=== PATIENT | female | born 1965 | race Caucasian/White ===

== ENCOUNTER 2022-07-01 06:28 | Observation (INO) ==
--- NOTE | 2022-06-28 09:40 | Anesthesiology Consultation ---
Date of Service June 28, 2022 Assessment & Plan (1) Encounter for pre-operative examination: - COVID screening: Per assessment on 06/24: No known COVID-19 positive contacts or current COVID-19 related symptoms. Travel screen negative. Patient vaccinated. At surgeon discretion if preop Covid testing being done. - S/P Colonoscopy (06/21/22): MAC at [facility]. No issues noted per post-op anesthesia progress note. Chart Review Chart Review: Acceptable Risk for Surgery and Patient NOT seen in Pre Admission Testing History Surgery Operation Date: 07/01/22 09:00 Proposed Procedures p Bilateral Total Mastectomy, Left Axillary [place] Lymph Node Biopsy - Aleks Hernandez, Height/Weight Height: 5 ft 5 in Weight: 86.183 kg Allergies Allergy/AdvReac Type Severity Reaction Status Date / Time cat dander Allergy Intermediate EYES SWELL Verified 06/24/22 11:13 AND ASTHMA LIKE SX'S lidocaine Allergy Mild Blister Verified 06/24/22 11:13 Medications Home Medications Medication Instructions Recorded Confirmed Last Taken No Known Home Medications 06/24/22 06/24/22 Unknown Past Medical History Medical History 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 History of COVID-19 Dx 08/2020, no current issues Rosacea Scoliosis "Mild" Past Family History Family History Grandfather (Maternal) Prostate cancer Father Cancer Pancreatic Mother Depression Parkinson disease Brother Cancer Son Depression suicide Other No family history of adverse response to anesthesia Denies family history of Ovarian cancer Myocardial infarction Breast cancer Colorectal cancer Past Surgical History Surgical History History of tooth extraction Hx of colonoscopy S/P breast biopsy left S/P section x2 1985,1986 Social History Smoking Status: Never smoker Do You Dip or Chew Tobacco: No Hx Alcohol Use: Yes Alcohol type: beer and wine alcohol intake frequency: holidays/special occasions only Hx Substance Use: No substance use type: does not use Testing Laboratory Results 06/25/22 WBC 4.31 H/H 12.8/38.5 PLATELETS 303 SODIUM 139 POTASSIUM 4.5 CHLORIDE 104 CO2 28 BUN 14 CREATININE 0.78 GLUCOSE 94 Electrocardiogram Date: 06/24/22 NSR at 75bpm. iRBBB.
[~2022-07-01 06:28] MED LIST: LACTATED RINGER'S 1,000 ML IV SCH; LR 15ML/HR IV SCH; ceFAZolin 2000MG 2,000 MG/15 ML SYR IV SCH
[2022-07-01] MEDS ORDERED: ACETAMINOPHEN 1000 MG/100 ML IV IV ONE (06:46)
[2022-07-01] MEDS ORDERED: MIDAZOLAM HCL 1 MG/ML 2ML VIAL ONE (06:47)
[2022-07-01] MEDS ORDERED: DEXAMETHASONE SOD INJ 4 MG/ML VIAL ONE (06:47)
[2022-07-01] MEDS ORDERED: ONDANSETRON INJ 2 MG/ML 2 ML VIAL ONE ×2 (06:47→12:09)
[2022-07-01] MEDS ORDERED: PROPOFOL IV EMULSION 10 MG/ML 20 ML VIAL IV ONE ×2 (06:47→08:47)
[2022-07-01] MEDS ORDERED: fentaNYL citrate 100 MCG/2 ML VIAL ONE ×3 (06:48→10:47)
[2022-07-01] MEDS ORDERED: PROMETHAZINE HCL 12.5 MG in SODIUM CHLORIDE 0.9% 50 ML IV PRN (07:37)
[2022-07-01] MEDS ORDERED: ONDANSETRON INJ 2 MG/ML 2 ML VIAL IV PRN ×2 (07:37→16:09)
[2022-07-01] MEDS ORDERED: fentaNYL citrate 100 MCG/2 ML VIAL IV PRN (07:37)
[2022-07-01] MEDS ORDERED: ATROPINE SULFATE 0.1 MG/ML 10ML SYR IV PRN (07:37)
[2022-07-01] MEDS ORDERED: HYDROmorphone INJ 2 MG/ML SYR/VIAL IV PRN (07:37)
[2022-07-01] MEDS ORDERED: ePHEDrine sulfate 50 MG/ML AMP IV PRN (07:37)
[2022-07-01] MEDS ORDERED: ROCURONIUM BROMIDE 10 MG/ML 5 ML VIAL IV ONE (07:50)
[2022-07-01] MEDS ORDERED: ISOSULFAN BLUE 10 MG/ML VIAL 5 ML ONE (08:36)
[2022-07-01] MEDS ORDERED: BUPIVACAINE/EPINEPHRINE 0.25% 1:200,000 30 ML VIAL ONE (08:36)
--- NOTE | 2022-07-01 08:39 | Nuclear Medicine Report ---
LYMPHOSCINTIGRAPHY CLINICAL HISTORY: Left breast cancer. PROCEDURE: Using standard sterile technique, 4 intradermal and one deep injection of 0.511 mCi of Lym phoseek was placed in the left breast. The patient tolerated the procedure well. There were no immedi ate complications. The patient was subsequently transported to the surgical suite. No imaging was obt ained at the referring physician's request. IMPRESSION: Injection of 0.511 mCi of Lymphoseek in the left breast. ACT 112: Negative or not required by law. Electronically signed by: Obed Gross M.D. 07/01/2022 8:37 AM
--- NOTE | 2022-07-01 08:56 | History & Physical Bridge Note ---
Date of Service July 01, 2022 History & Physical Bridge Note I have examined the patient, reviewed the History & Physical and in the interval since the performance of the History & Physical I have noted the following changes of clinical significance: no changes noted
[2022-07-01] MEDS ORDERED: HYDROmorphone INJ 1 MG/ML SYRINGE ONE (10:06)
[2022-07-01] MEDS ORDERED: NEOSTIGMINE METHYLSULFATE 1 MG/ML 10ML VIAL ONE (12:08)
[2022-07-01] MEDS ORDERED: GLYCOPYRROLATE 0.2 MG/ML VIAL ONE (12:08)
[2022-07-01] MEDS ORDERED: PHENYLEPHRINE 100MCG/ML 5ML SYR ONE (12:30)
--- NOTE | 2022-07-01 13:13 | Post Operative Brief Note ---
PG Immediate Post Op with CF Date of Surgery July 01, 2022 Pre & Post Diagnosis Operation Date: 07/01/22 09:00 Pre-Op Diagnosis: Left Breast Ductal Carcinoma in situ with Comedonecrosis; Patient desires prophylactic removal of Right Breast Post-Op Diagnosis: Left Breast Ductal Carcinoma in situ with Comedonecrosis; Patient desires prophylactic removal of Right Breast I identified the patient and participated in the time-out.: Yes Procedure Operation Date: 07/01/22 09:00 Actual Procedures p Bilateral Total Mastectomy, Left Axillary [place] Lymph Node Biopsy(Bilateral) - Aleks Hernandez DO Surgeon Aleks Hernandez DO Inventory Manager Jamie Waterman PA-C Estimated Blood Loss 100 Findings Consistent with Post-Op Diagnosis Specimens Specimen Description: A. Right Breast (FRESH)--Long Stitch=Lateral, Short Stitch=Superior--sent to lab at 1056 B. Left Breast (FRESH)--Long Stitch=Lateral, Short Stitch=Superior--sent to lab at 1217 Frozen Section #1--[place] Lymph Node #1 (Left Axilla)--sent to lab at 1217 (127 exvivo) Frozen Section #2--[place] Lymph Node #2 (Left Axilla)--sent to lab at 1217 (52 exvivo) Frozen Section #3--[place] Lymph Node #3 (Left Axilla)--sent to lab at 1227 (244 exvivo) Drains Chris-Fox Drain (19 Fr Aleks Drains x2) Anesthesia Type General Complications none Disposition Disposition: Recovery Room
--- NOTE | 2022-07-01 13:28 | Operative Report ---
PG Post Operative Report Pre & Post Diagnosis Operation Date: 07/01/22 09:00 Pre-Op Diagnosis: Left Breast Ductal Carcinoma in situ with Comedonecrosis; Patient desires prophylactic removal of Right Breast Post-Op Diagnosis: Left Breast Ductal Carcinoma in situ with Comedonecrosis; Patient desires prophylactic removal of Right Breast I identified the patient and participated in the time-out.: Yes Procedure Operation Date: 07/01/22 09:00 Actual Procedures p Bilateral Total Mastectomy, Left Axillary [place] Lymph Node Biopsy(Bilateral) - Aleks Hernandez DO Surgeon Aleks Hernandez DO Cushion Installer Jamie Waterman PA-C Estimated Blood Loss 100 Findings Consistent with Post-Op Diagnosis Specimens Right breast short stitch superior, long lateral to pathology Left breast short stitch superior, long lateral to pathology [place] lymph node #1 ex vivo count 127 and blue [place] lymph node #2 ex vivo count 52 and blue [place] lymph node #3 ex vivo count 244 and blue Drains 19 Portuguese Aleks drain in each mastectomy site Anesthesia Type General Complications none Disposition Disposition: Recovery Room Indications 56-year-old female with biopsy-proven left breast DCIS, desire for right prophylactic total mastectomy Description of Procedure The patient was brought to the OR and placed in the supine position with both arms abducted. At this time she underwent general endotracheal anesthesia without any problems. She was given appropriate pre-operative antibiotics. Lymphazurin was injected in a periareolar manner prior to skin prep. Her bilateral chest and axilla were prepped and draped in the usual sterile fashion. Timeout was called. The procedure was verified as bilateral mastectomy with left axillary sentinel lymph node biopsy. Surgical, anesthesia and nursing teams agreed and the procedure was begun. A transverse elliptical incision was made on the right breast to include the nipple areolar complex. This was carried down the the subcutaneous tissue with electrocautery. At this point skin flaps were raised with electrocautery superiorly to the clavicle, medially to the sternum, inferiorly to the inframammary fold, and laterally to the latissimus. The breast tissue was then removed from the pectoralis major muscle along the with fascia. The breast was then transected laterally and sent of as specimen. A bleeding was controlled with electrocautery. Hemostasis was complete. Moist surgical laps were placed in the incision and we then turned our attention to the left breast. The left breast was then removed in the same manner as described above with the right breast. The left breast was then x- rayed and surgical clip was within the specimen. At this point our attention was turned to the left axilla for the sentinel lymph node biopsy. The neoprobe was placed into the axilla and a hot but not blue node was found and count was 127. This was excised sharply and sent as specimen. At this point two other lymph nodes were found using the neoprobe. Second was hot and blue and count was 52. The third lymph node was hot and blue and count was 244. Placing the neoprobe in the axilla at this point revealed a count of 8. At this time the incision was irrigated until clear. Hemostasis was achieved using electrocautery. Hemostasis was complete. A #19 Portuguese Aleks drain was introduced through a stab incision laterally on the lower skin flap of both incisions. It was placed along the inferior and superior skin flap. At this time the incisions were closed using 3-0 Vicryl suture at the deep dermal layer and 4-0 Monocryl in a running subcutaneous fashion in the skin. Dermabond Prineo dressing was applied. Sterile dressing was then placed over this and surgical bra. The patient was then awakened from anesthesia and extubated having remained stable throughout the entire case. Needle and sponge count were correct x 2. Frozen section of 3 lymph nodes were negative for any metastatic carcinoma. The physician's call center assistant was present and scrubbed for the entire case. He was essential for positioning, prepping and draping the patient, retraction and exposure, closure of the incision and placement of the dressings. I attest to the content of the Intraoperative Record and any orders documented therein. Any exceptions are noted below.
--- NOTE | 2022-07-01 14:53 | Anesthesiology Progress Note ---
Date of Service July 01, 2022 Anesthesia Post Procedure Vital Signs Vital Signs: Temp Pulse Pulse Resp BP Pulse Ox O2 Del Method 07/01/22 14:45 89 18 100/64 94 Room Air 07/01/22 14:30 85 19 95/58 L 94 Room Air 07/01/22 14:15 89 18 119/62 95 Room Air 07/01/22 13:55 36.4 C L 78 16 100/60 96 Room Air 07/01/22 13:45 83 16 113/71 98 Oxymask 07/01/22 13:35 84 13 111/70 99 Oxymask 07/01/22 14:05 82 16 102/61 97 Room Air 07/01/22 13:25 88 18 124/75 99 Oxymask 07/01/22 13:19 36.9 C 88 16 123/77 99 Oxymask 07/01/22 06:51 36.9 C 79 20 137/73 96 Room Air O2 Flow Rate 07/01/22 14:45 07/01/22 14:30 07/01/22 14:15 07/01/22 13:55 07/01/22 13:45 2 07/01/22 13:35 4 07/01/22 14:05 07/01/22 13:25 6 07/01/22 13:19 6 07/01/22 06:51 Pain Intensity Bilateral Chest: Pain Intensity: 3 Transfer of Care Handoff Completed per policy Notes Mental Status: alert / awake / arousable and participated in evaluation Patient Amnestic to Procedure: Yes Nausea / Vomiting: adequately controlled Pain: adequately controlled Airway Patency, RR, SpO2: stable & adequate BP & HR: stable & adequate Hydration State: stable & adequate Anesthetic Complications: no major complications apparent
--- NOTE | 2022-07-01 15:24 | Mammography Report ---
SPECIMEN LEFT BREAST: 07/01/2022 CLINICAL HISTORY: Status post left breast mastectomy. COMPARISON: Comparison is made to exams dated: 06/16/2022 ultrasound biopsy, 06/16/2022 mammogram, 06/03 ultrasound biopsy, 06/02/2022 breast MRI, 04/28/2022 ultrasound biopsy, and 04/27/2022 ultrasound - [facility]. Findings: A radiograph was performed of the left breast surgical specimen. The ribbon shaped biopsy clip and associated architectural distortion is present within the specimen. Results were relayed to the surgeon over the telephone in the operating room. IMPRESSION: SPECIMEN The imaged specimen contains the biopsy clip. Marine Martinez M.D. /:07/01/2022 12:22:38 Credit Reporter: OR Technologist, [facility]
[2022-07-01] MEDS ORDERED: oxyCODONE HCL IR 5 MG TAB (IMMEDIATE RELEASE) PO PRN ×2 (16:09)
[2022-07-01] MEDS ORDERED: ACETAMINOPHEN 500 MG TAB PO PRN (16:09)
[2022-07-01] MEDS ORDERED: MoRPHine SULFATE 2 MG/ML CARP IV PRN (16:09)
[2022-07-01] MEDS ORDERED: MoRPHine SULFATE 4 MG/ML 1 ML CARP\\VIAL IV PRN (16:09)
[2022-07-01] MEDS: LACTATED RINGER'S 1,000 ML IV SCH (16:14)
[2022-07-01] MEDS ORDERED: Flu Vaccine (Flucelvax) 0.5mL SYR **Egg-Free IM ONE (18:00)
[2022-07-01] MEDS: ceFAZolin 2000MG 2,000 MG/15 ML SYR IV SCH (18:12)
[2022-07-01] MEDS ORDERED: PROMETHAZINE HCL 12.5 MG in SODIUM CHLORIDE 0.9% 50 ML IV STA (18:39)
[2022-07-02] MEDS: ceFAZolin 2000MG 2,000 MG/15 ML SYR IV SCH ×2 (00:33→07:36)
[2022-07-02] MEDS: LACTATED RINGER'S 1,000 ML IV SCH (04:55)
--- NOTE | 2022-07-02 08:15 | Surgery Progress Note ---
Date of Service July 02, 2022 Assessment & Plan (1) Ductal carcinoma in situ (DCIS) of left breast: Plan: POD#1 bilateral breast mastectomy pt clinically doing well. VSS. Pain controlled dressings c/d/i RENEE x2 sanguinous drainage (R:80cc, L:130cc); will have Nn perform RENEE drain care Advance to regular diet, d/c IVF Will plan on discharge after lunch if pain remains controlled, diet tolerated, pt stable Dispo instructions reviewed; f/u with Dr. Hernandez in clinic on 07/08/22 Admission and Anticipated Discharge Date Admission Date: July 01, 2022 Supervising Physician Co-Signing Physician Notes I personally saw and evaluated the patient with Indira Elizabeth PA-C and agree with the assessment and plan. 56-year-old female postoperative day 1 bilateral total mastectomies with left axillary sentinel lymph node biopsy She had some emesis yesterday but has been fine since last night and tolerated clear liquids, will advance her diet Has minimal pain we will continue p.o. pain meds DC IV fluids Her drain output has been a little sanguinous, but minimal overall and on exam she has no hematoma on either side of her chest She tolerates her diet and pain remains well controlled she can be discharged home later today She will follow-up in the office in 1 week Subjective Patient is feeling well. Had a bout of emesis yesterday evening, but none since. Pain controlled, only feeling the compression from her bandages. Offers no complaints. Physical Exam Physical Exam: awake/alert, no distress Respiratory: normal respiratory effort Chest (Breasts): Additional Comments: surgical dressings c/d/i, no signs of hematoma/swelling. RENEE x2 sang output (R: 80cc, L: 130cc) Results & Data ([facility]) Vital Signs (Past 12 Hours) Vital Signs Temp Pulse Resp BP Pulse Ox O2 Del Method 07/02/22 07:32 36.7 C 90 18 105/68 96 Room Air 07/02/22 04:54 37.1 C 98 H 16 100/63 95 Room Air 07/01/22 21:54 37.2 C 98 H 16 102/65 95 PG Care Time/CCT Total # of Minutes Spent Total Time Spent with Patient: Total time spent is greater than 50% in coordination of care (as documented) at patient's floor/unit and/or counseling patient: Coding Level of Care Code None Diagnoses Ductal carcinoma in situ (DCIS) of left breast D05.12
[2022-07-02 09:01] LABS: Basophils # (auto) 0.02 K/uL (0-0.2); Basophils % (auto) 0.2 %; Eosinophils # (auto) 0.01 K/uL (0-0.50); Eosinophils % (auto) 0.1 %; Hematocrit (blood only) 32.7 % (34.1-44.9); Hemoglobin 10.8 g/dl (12.0-16.0); Immature Granulocytes # (auto) 0.06 K/uL (0.00-0.02); Immature Granulocytes % (auto) 0.5 %; Lymphocytes # (auto) 1.69 K/uL (1.2-3.4); Lymphocytes % (auto) 14.8 %; Mean Corpuscular Hemoglobin 30.3 pg (25.0-34.0); Mean Corpuscular Volume 91.9 fL (80.0-100.0); Mean Platelet Volume 10.4 fL (9.4-12.3); Monocytes # (auto) 0.78 K/uL (0.24-0.82); Monocytes % (auto) 6.8 %; Neutrophils # (auto) 8.89 K/uL (1.4-6.5); Neutrophils % (auto) 77.6 %; Platelet Count 272 K/uL (130-400); RDW Coefficient of Variation 12.3 % (11.5-14.5); RDW Standard Deviation 41.4 fL (36.4-46.3); Red Blood Count 3.56 M/uL (3.93-5.22); White Blood Count 11.45 K/ul (4.8-10.8)
[2022-07-02 09:22] LABS: BUN Creatinine Ratio 17.9 (10-20); Calcium 8.7 mg/dl (8.5-10.1); Creatinine Clr Calc Pharmacy 87.6 ml/min; Est GFR (African American) 98.5 ml/min; Potassium 3.9 mmol/L (3.5-5.1)
--- NOTE | 2022-07-07 12:25 | Discharge Summary ---
Date of Service July 02, 2022 Principal Diagnosis Breast cancer Discharge Exam Constitutional WD/WN, vitals as above Chest (Breasts) Additional Comments: dressings intact, RENEE drains present Discharge Data Allergies Allergy/AdvReac Type Severity Reaction Status Date / Time cat dander Allergy Intermediate EYES SWELL Verified 07/01/22 06:44 AND ASTHMA LIKE SX'S lidocaine Allergy Mild Blister Verified 07/01/22 06:44 Procedures Performed Operation Date: 07/01/22 09:00 Actual Procedures p Bilateral Total Mastectomy, Left Axillary [place] Lymph Node Biopsy(Bilateral) - Aleks Hernandez DO Ordered Studies 07/01/22 05:00 US - OR guided needle placemen Routine Hospital Course (1) Ductal carcinoma in situ (DCIS) of left breast: 56 y/o female was taken to the operating room for bilateral mastectomy with left sentinel lymph node biopsy. The procedure was well tolerated and she transferred to the surgical floor for overnight observation. She did well overnight, was able to advance diet and tolerate oral analgesics. She was stable for discharge home with RENEE drains to be removed in clinic when drainage is less than 30 cc over 24 hours. Total Time Total Time Spent Total Time Spent (In Minutes): 15 Discharge Plan Discharge Items Patient Disposition: Home - Self-Care Reason For Visit: Left Breast Ductal Carcinoma in situ Discharge Diagnosis: bilateral breast mastectomy Activity: Per Instructions section Lifting: No more than 10 pounds Bathing Comment: keep incisions dry until your follow up with surgeon. may sponge bath Exercise/Sports: Wait until after follow-up appointment Driving/Machine Use: wait until cleared by surgeon; no driving while taking narcotics for pain Non-emergency contact: Surgeon Call non-emergency contact if: you have any medication questions, your symptoms worsen, your pain is not controlled, your pain is concerning for you, you have a fever, your temperature is above 101.5, your wound has increased redness, your wound has increased drainage and your wound pain has increased Follow-up/Referrals: Katina Wilkerson MD [Primary Care Provider] - Aleks Hernandez DO [Physician] - 07/08/22 11:00 am (Please call to schedule follow up in clinic within 1-2 weeks ) Diet: Regular Addtl Attending Provider Instructions: Please care for your surgical drains as you have been instructed prior to discharge from the hospital. Empty drain 2-3x/daily and record output. Once drainage <30cc/day over 2 days you may call the office to inquire about removal You may purchase Tylenol and/or Ibuprofen as needed for pain. Take per manufacturers instructions Please keep your dressings on until Tuesday, may look at them and if bandages have some bloody drainage may replace with dry gauze and medical tape. Otherwise keep dressings in place and keep them dry. No showering until your follow up in clinic. you may sponge bath and wash your hair as needed. Pending Studies at Discharge: Yes Studies:: surgical pathology Stand-Alone Forms: [facility] Medications and DC Order Prescriptions: New oxycodone 5 mg tablet 5 - 10 mg PO .n3p-d1w PRN (Reason: pain, for initial therapy, max 6 tabs per day) Qty: 12 0RF ondansetron HCl 4 mg tablet 4 mg PO Q8H PRN (Reason: nausea and vomiting) Qty: 9 0RF Discharge Orders: Discharge Order (Routine); Ordered 07/02/22 Ordered By: Indira Elizabeth Admission Data Admit Date/Time: 07/01/22 13:23 Attending Provider: Aleks Hernandez Admit Provider: Aleks Hernandez Primary Care Provider: Katina Wilkerson Other Interventions: Discharge Summary Assessment (RN) Last Done: 07/02/22 09:57 Coding Level of Care Code D/C DAY MANAGEMENT <30 MINS Diagnoses Ductal carcinoma in situ (DCIS) of left breast D05.12
== END 2022-07-02 13:29 | disposition home or self-care (01) ==
LOC: ASU 06:28 → PACUINP 06:28 → 3W 16:00
DX: D05.12 Intraductal carcinoma in situ of left breast; Z88.8 Allergy status to other drugs, medicaments and biological substances